=== PATIENT | male | born 2000 | race Caucasian/White ===

== ENCOUNTER 2018-01-24 17:03 | Emergency (ER) | payer OTHER ==
[~2018-01-24] VITALS: Ht 185.4 cm; Wt 120.0 kg
[2018-01-24] MEDS ORDERED: CEPH500C5 PO (19:48)
[2018-01-24] MEDS ORDERED: SULF1TAB49 PO (19:48)
[2018-01-24 20:07] VITALS: BP 119/67
== END 2018-01-24 20:10 | disposition home or self-care (01) ==
LOC: ER 17:04
DX: L02.415 Cutaneous abscess of right lower limb (principal)
CPT/HCPCS: 99283